=== PATIENT | female | born 1930 | race Two or more races ===

== ENCOUNTER 2016-08-26 05:40 | Inpatient (IN) | payer MEDICARE, MEDICAID ==
[~2016-08-26] VITALS: Ht 157.5 cm; Wt 54.4 kg
[2016-08-26] VITALS (14 sets, daily range): BP systolic 93–149; BP diastolic 43–65
[2016-08-26] MEDS ORDERED: celeBREX 200mg Cap **SURGERY PATIENTS ONLY ORAL ONE (06:00)
[2016-08-26] MEDS ORDERED: oxyCONTIN 20mg tab ORAL ONE (06:00)
[2016-08-26] MEDS ORDERED: Ropivacaine 5mg/ml Vial 20ml INJ ONE (06:18)
[2016-08-26] MEDS ORDERED: Morphine Sulfate PF 10 ML ONE (06:18)
[2016-08-26] MEDS ORDERED: Bupivacaine 0.5% Inj 30 ml vial INJ ONE (06:20)
[2016-08-26] MEDS ORDERED: Bacitracin 50000 Units Vial ONE (06:29)
[2016-08-26] MEDS ORDERED: LR 1000ml 1,000 ML IVLG SCH (06:35)
--- NOTE | 2016-08-26 06:40 | Anethesia Preoperative Eval ---
Anesthesia Pre-op PMH/ROS General Date of Evaluation: August 26, 2016 Time of Evaluation: 06:56 Anesthesiologist: Carmelita ASA Score: ASA 3 Mallampati Score Class I : Soft palate, uvula, fauces, pillars visible Class II: Soft palate, uvula, fauces visible Class III: Soft palate, base of uvula visible Class IV: Only hard plate visible Mallampati Classification: Class II Surgeon: Yessenia Diagnosis: L Knee Pain Surgical Procedure: L TKR Anesthesia History: none Family History: no anesthesia problems Allergies: Coded Allergies: PENICILLIN G (Verified Allergy, Mild, 07/09/09) Medications: see eMAR Past Medical History Cardiovascular: Reports: HTN HEENT: Reports: cataract (L), cataract (R) PSxH Narrative: R Knee Anesthesia Pre-op Phys. Exam Physician Exam Last Vital Signs Date Time Temp Pulse Resp B/P Pulse Ox O2 Delivery O2 Flow Rate FiO2 08/26/16 06:18 97.1 56 18 149/56 98 Room Air Constitutional: NAD Neurologic: CN 2-12 intact Cardiovascular: RRR Respiratory: CTA Gastrointestinal: S/NT/ND Airway Exam Mallampati Score: Class II MO: limited ROM: limited Teeth: missing, intact Anesthesia Pre-op A/P Risk Assessment & Plan Assessment: ASA 3 Plan: GA, Spinal, BIS, L Adductor Block Status Change Before Surgery: No Pre-Antibiotics Dru Grams Ancef IV Given Within 1 Hr of Incision: Yes Time Given: 07:41 Tomasz Mae MD August 26, 2016 06:40
--- NOTE | 2016-08-26 06:44 | Pre-Procedure Note/Attestation ---
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 I attest that, if there was a reasonable possibility of needing a blood transfusion, the patient (or the patient's legal sales representative education courses) was given the [facility] standardized written summary, pursuant to the [employer] [place] Blood Safety Act ([place] Health and Safety Code # 1645, as amended). I attest that I re-evaluated the patient just prior to the surgery and that there has been no change in the patient's H&P, except as documented below: NONE SELENA GOLDSTEIN August 26, 2016 06:44
[2016-08-26] MEDS ORDERED: Metoclopramide 10mg/2ml Inj IVP PRN (06:45)
[2016-08-26] MEDS ORDERED: Meperidine 25mg/0.5ml Inj IV PRN (06:45)
[2016-08-26] MEDS ORDERED: fentaNYL 100 mcg/2 mL IV PRN (06:45)
[2016-08-26] MEDS ORDERED: DiphenhydrAMINE 50mg/ml Inj IVP PRN (06:45)
[2016-08-26] MEDS ORDERED: Ketorolac 30mg Inj IV PRN (06:45)
[2016-08-26] MEDS ORDERED: Norco 7.5mg/325mg tab ORAL PRN ×3 (06:45→15:00)
[2016-08-26] MEDS ORDERED: Norco 5mg/325mg tab ORAL PRN ×2 (06:45→07:15)
[2016-08-26] MEDS ORDERED: Ketorolac 60mg Inj IV PRN (06:45)
[2016-08-26] MEDS ORDERED: Hydromorphone 0.5mg/0.5ml inj IVP PRN (06:45)
[2016-08-26] MEDS ORDERED: Atropine Inj 1mg/10ml Syr IV PRN (06:45)
[2016-08-26] MEDS ORDERED: Oxycodone/Acetaminophen 5-325 ORAL PRN (06:45)
[2016-08-26] MEDS ORDERED: LORazepam Inj 2mg/ml 1ml IV PRN (06:45)
[2016-08-26] MEDS ORDERED: Midazolam 2mg/2ml Inj IVP PRN (06:45)
[2016-08-26] MEDS ORDERED: NS Irrig 1000ml ONE (07:00)
[2016-08-26] MEDS ORDERED: Tranexamic Acid 1,000 MG in NS 65 ML IVPB ONE (07:00)
[2016-08-26] MEDS ORDERED: Midazolam 2mg/2ml Inj ONE (07:00)
[2016-08-26] MEDS ORDERED: Lidocaine 1% Plain 30 ml INJ ONE (07:00)
[2016-08-26] MEDS ORDERED: Lidocaine 1% MPF 10mg/ml 5ml ONE (07:00)
[2016-08-26] MEDS ORDERED: Dexamethasone 4mg/ml vial ONE (07:00)
[2016-08-26] MEDS ORDERED: ePHEDrine 50mg/ml Inj ONE (07:00)
[2016-08-26] MEDS ORDERED: LR 1000ml ONE ×2 (07:00)
[2016-08-26] MEDS ORDERED: Alfentanil 2ml Inj ONE (07:00)
[2016-08-26] MEDS ORDERED: Propofol 10mg/ml 20ml IV ONE (07:00)
[2016-08-26] MEDS ORDERED: CALCIUM CITRAT1 EAC3 PO (07:07)
[2016-08-26] MEDS ORDERED: GLUCOSAMINE &1 EAC2 PO (07:07)
[2016-08-26] MEDS ORDERED: BIOTIN 800 MCG1 EACH PO (07:07)
[2016-08-26] MEDS ORDERED: VITAMIN D1000 UNI1 ORAL (07:07)
[2016-08-26] MEDS ORDERED: NORVASC5 MG ORAL (07:07)
[2016-08-26] MEDS ORDERED: LOSARTAN POTAS100 MG ORAL (07:07)
[2016-08-26] MEDS ORDERED: ASPIR 8181 MG ORAL (07:07)
[2016-08-26] MEDS ORDERED: B COMPLEX1 EACH ORAL (07:07)
[2016-08-26] MEDS ORDERED: ALENDRONAT70 MG/75 M PO (07:07)
--- NOTE | 2016-08-26 08:33 | Immediate Post-Op Evaluation ---
Immediate Post-Op Evalulation Immediate Post-Op Evalulation Procedure: L TKR Date of Evaluation: August 26, 2016 Time of Evaluation: 09:54 IV Fluids: 1000 LR Blood Products: 0 Estimated Blood Loss: 30 Urinary Output: 300 Blood Pressure Systolic: 94 Blood Pressure Diastolic: 45 Pulse Rate: 77 Respiratory Rate: 16 O2 Sat by Pulse Oximetry: 97 Temperature (Fahrenheit): 97.9 Pain Score (1-10): 0 Nausea: No Vomiting: No Complications 0 Patient Status: awake, reacts, patent, extubated, none Hydration Status: adequate Dru grams Ancef IV Given Within 1 Hr of Incision: Yes Time Given: 07:41 Tomasz Mae MD August 26, 2016 08:33
[2016-08-26] MEDS: celeBREX 200mg Cap **SURGERY PATIENTS ONLY ORAL SCH (09:00)
[2016-08-26] MEDS ORDERED: Enoxaparin 30mg Inj SUBQ SCH (09:00)
--- NOTE | 2016-08-26 09:31 | Brief Operative Note ---
Immediate Post Operative Note Operative Note Chief Complaint: left knee pain Pre-op Diagnosis: left knee arthritis Procedure: left TKA Post-op Diagnosis: same as pre-op Findings: consistent w/pre-op dx studies Surgeon: md Yessenia Php Mysql Web Developer: lacey Varner Anesthesiologist: MD Christian Anesthesia: general Specimen: yes Complications: none Condition: stable Estimated Blood Loss: minimal Drains: none Implant(s) used?: Yes - [employer] MADDIE VARNER August 26, 2016 09:31
[2016-08-26 11:06] LABS: MEAN CORPUSCULAR HEMOGLOBIN 28.1 PG (27.0-31.0); MEAN CORPUSCULAR HGB CONC 31.7 G/DL (32.0-36.0); MEAN CORPUSCULAR VOLUME 89 FL (80-99); MEAN PLATELET VOLUME 6.7 FL (6.5-10.1); PLATELET COUNT 186 K/UL (150-450); RED BLOOD COUNT 3.79 M/UL (4.20-5.40); RED CELL DISTRIBUTION WIDTH 13.6 % (11.6-14.8); WHITE BLOOD COUNT 7.1 K/UL (4.8-10.8)
[2016-08-26 11:36] LABS: LYMPHOCYTES % (MANUAL) 8 % (20-45); NEUTROPHILS % (MANUAL) 91 % (45-75); TOTAL CELLS COUNTED 100
[2016-08-26 11:37] LABS: ANISOCYTOSIS 1+; BAND NEUTROPHILS % (MANUAL) 0 % (0-8); BASOPHILS % (MANUAL) 0 % (0-2); EOSINOPHILS % (MANUAL) 0 % (0-3); HYPOCHROMASIA 1+; PLATELET ESTIMATE ADEQUATE; PLATELET MORPHOLOGY NORMAL
--- NOTE | 2016-08-26 13:35 | Diagnostic Imaging Report ---
Indications: Status post left knee arthroplasty Technique: Portable AP and lateral views of the left knee Findings: Comparison: None Femoral, patellar, tibial prosthetic components appear well seated and in anatomic alignment. No abnormal surrounding lucency is present. Overlying soft tissues are swollen with gas bubbles. Chronic arterial mural calcifications.. IMPRESSION: Status post left knee arthroplasty. Arteriosclerosis
[2016-08-26] MEDS ORDERED: Vitamin D 1000 IU Tab ORAL SCH (15:00)
[2016-08-26] MEDS ORDERED: HYDROmorphone 1mg/ml Carpuject SUBQ PRN (15:00)
[2016-08-26] MEDS ORDERED: Milk of Magnesia 30ml Ud ORAL PRN (15:00)
[2016-08-26] MEDS: D5 1/2NS w/KCl 20mEq 1,000 ML IV SCH (15:33)
[2016-08-26] MEDS: Clindamycin 600mg 50 ML IV SCH ×2 (15:34→22:21)
[2016-08-26] MEDS ORDERED: Losartan 50mg tab ORAL SCH (17:00)
[2016-08-26] MEDS: Docusate 100mg cap ORAL SCH (18:10)
--- NOTE | 2016-08-26 18:20 | Operative Note - Dictated ---
DATE OF OPERATION: 08/26/2016 PREOPERATIVE DIAGNOSIS: Left knee end-stage arthritis. POSTOPERATIVE DIAGNOSIS: Left knee end-stage arthritis. PROCEDURE: Left total knee arthroplasty using [employer]hew system, size 4 femur, size 3 tibia, size 13 mm tibial poly insert, and size 32 mm patellar insert, all cemented. SURGEON: Michael Casas M.D. FACS TEACHER: Carie Varner PA-C. ANESTHESIOLOGIST: Tomasz Mae M.D. ANESTHESIA: Spinal anesthesia combined with adductor block for postoperative pain management. EBL: Less than 100 mL. TOURNIQUET TIME: 65 minutes. COMPLICATIONS: None. BRIEF HISTORY: The patient is a pleasant 86-year-old female who has had ongoing left knee pain and arthritis. She failed all nonoperative treatments including physical therapy, injections, and activity modification. After full discussion of the risks and benefits of the surgery and complications associated with it including infection, bleeding, neurovascular complication, possibility of DVT, PEs, and other complications that may arise, she opted for surgical treatment as described above. OPERATIVE PROCEDURE: The patient was brought to the operating table and was placed supine. All pressure points were well padded. Spinal anesthesia was induced. An adductor block was performed. The left knee was prepped and draped in the usual sterile fashion. A standard anterior approach to the knee was undertaken. After the left leg was exsanguinated, tourniquet was inflated to 275 mmHg. A medial parapatellar arthrotomy was performed and deep fibers of MCL were released. Medial and lateral meniscus was resected. The patella was everted and the knee was flexed. Entry point into the intramedullary canal was obtained. An intramedullary guide was placed into the femur. A 5-degree valgus distal cut was performed without any complications. At this point, sizing was performed and size 4 appeared to be the right size. The cutting block was placed in about 3 degrees of external rotation and anterior, posterior, and chamfer cuts were performed without any complication. Once this was performed, the trial femur was applied. There was excellent fit of the trial femur. The box cut was then performed using standard technique. Any remnants of ACL and PCL were resected. This provided excellent fit of the femur. Once this was completed, care was given to the tibia. The anterior tibia was then marked, the anterior tibial spine was marked, and the anterior tibial crest was marked. This was used as the alignment. Extramedullary alignment guide was then applied and by recreating slope and recreating anatomical axis, 9 mm was taken off the least involved side, which was the lateral side. This provided minimal bone resection on the medial side. Flexion-extension gap was checked and there was excellent flexion-extension gap with full extension and 90 degrees of flexion with an 11 mm block. Once this was completed, the knee was flexed and sizing was performed and size 3 tibial component appeared to be right size. This was placed in about 3 degrees external rotation and the short stem was punched in. At this point, trial femur, trial tibia, and an 11 mm poly insert was applied. Knee was placed through range of motion. There was excellent range of motion and stability. Care was given to the patella. The patella was everted. Using caliper, measurements were made and this was 24 mm. Standard freehand cut of the patella was performed and there was 14 mm patella remaining. Measurements were made and 32 mm patellar component appeared to be the right size. The PEG holes were drilled. At this point, a trial component of the patella was applied. At this point, the femoral component, tibial component, with a 11 mm insert, as well as patellar components were all placed through range of motion. There was full extension, full flexion, and good stability at 0, 40 degrees, 45 degrees, and 90 degrees of flexion. However, there was a slight laxity at full extension. Therefore, the tibial insert was changed to 13 mm. At this point, there was full extension, full flexion, excellent stability at 0 to 30 degrees, 45 degrees, and 90 degrees of flexion. The range of motion was excellent. The patellofemoral tracking was excellent. At this point, all trial components were removed and knee was thoroughly irrigated using copious amount of fluid. The original entry hole into the intramedullary canal of the femur was plugged in with bone. The wounds were thoroughly irrigated and cement was mixed and the tibial component, femoral component, and the patellar components were all cemented without any complication. All excess cement was removed. At this point, trialing was performed once cement was hardened and size 13 mm appeared to be the right size. Therefore at this point, an actual 13 mm poly insert was then locked in without any complication. The locking mechanism was checked and rechecked and appeared to be perfect and there was no soft tissue interposition. At this point, again range of motion, stability, and patellofemoral tracking was checked and appeared to be perfect. The tourniquet was deflated. Wounds were thoroughly irrigated. All small bleeders were stopped. The extensor mechanism was closed using #1 Vicryl suture, subcutaneous tissue was closed using 2-0 Vicryl suture, and skin was closed using 3-0 Monocryl suture. Dermabond was applied and the patient was taken to the recovery room in stable condition. Michael Casas M.D. DR: ASHLEY JOB#: [id number] CC:
--- NOTE | 2016-08-26 19:32 | History & Physical ---
History and Physical History & Physicial this is anunfortunate female with ,ulitple medical problems s/p right TKR I was consultegd by Dr diego for medical eval 86 year old female with numerous problems s/p tkr PREOP LABS SHOWED PYURIA THERE WAS NO CULTURE SHE HAS NO SYUMPTOMS UNKNOWN IF SHE GOT THE ANTIBIOTIC. pmh: HYPERTENISON COMPRESSION FRACTURE OF SPINE a knee oSTEOPOROSIS pROTEINURIA MILD HYPERGLYCEMIA SHX: NON SMOKER NO ALCOHOL ABUSE VITALS STABEL NO JVD CTA S1,S2,RRR SOFT KNEE IS ON CPM IMPRESSION S./P tkr hctREVIEWED PERIOPERATIVE ANTIBIOTIC PROPYALXIS GIVEN POST OP DVT PROPHYLAXIS PT OT HYPERTENISON ANTIHYPERTENSIVE WITH HOLD PARAMETERS CHECK A A UA ND URINE CULTURE NAD MONITOR. MARILU HOOVER August 26, 2016 19:32
[2016-08-27] VITALS (7 sets, daily range): BP systolic 82–132; BP diastolic 37–57
[2016-08-27] MEDS: D5 1/2NS w/KCl 20mEq 1,000 ML IV SCH ×3 (03:41→21:58)
[2016-08-27] MEDS: Clindamycin 600mg 50 ML IV SCH ×2 (03:45→08:49)
[2016-08-27 07:59] LABS: MEAN CORPUSCULAR HEMOGLOBIN 28.9 PG (27.0-31.0); MEAN CORPUSCULAR HGB CONC 32.2 G/DL (32.0-36.0); MEAN CORPUSCULAR VOLUME 90 FL (80-99); MEAN PLATELET VOLUME 7.4 FL (6.5-10.1); PLATELET COUNT 163 K/UL (150-450); RED BLOOD COUNT 3.25 M/UL (4.20-5.40); RED CELL DISTRIBUTION WIDTH 13.7 % (11.6-14.8)
--- NOTE | 2016-08-27 08:35 | Orthopedic Progress Note ---
Orthopedic - Progress Note Subjective Symptoms: improved, other - had symptomatic bradycardia last night- transfered to [facility]. feeling better now. has eaten. HR and BP improved Objective Vital Signs Laboratory Tests Test 08/26/16 10:55 08/27/16 07:30 White Blood Count 7.1 K/UL (4.8-10.8) 11.0 K/UL (4.8-10.8) #H Red Blood Count 3.79 M/UL (4.20-5.40) L 3.25 M/UL (4.20-5.40) L Hemoglobin 10.6 G/DL (12.0-16.0) L 9.4 G/DL (12.0-16.0) L Hematocrit 33.6 % (37.0-47.0) L 29.2 % (37.0-47.0) L Mean Corpuscular Volume 89 FL (80-99) 90 FL (80-99) Mean Corpuscular Hemoglobin 28.1 PG (27.0-31.0) 28.9 PG (27.0-31.0) Mean Corpuscular Hemoglobin Concent 31.7 G/DL (32.0-36.0) L 32.2 G/DL (32.0-36.0) Red Cell Distribution Width 13.6 % (11.6-14.8) 13.7 % (11.6-14.8) Platelet Count 186 K/UL (150-450) 163 K/UL (150-450) Mean Platelet Volume 6.7 FL (6.5-10.1) 7.4 FL (6.5-10.1) Neutrophils (%) (Auto) % (45.0-75.0) % (45.0-75.0) Lymphocytes (%) (Auto) % (20.0-45.0) % (20.0-45.0) Monocytes (%) (Auto) % (1.0-10.0) % (1.0-10.0) Eosinophils (%) (Auto) % (0.0-3.0) % (0.0-3.0) Basophils (%) (Auto) % (0.0-2.0) % (0.0-2.0) Differential Total Cells Counted 100 Neutrophils % (Manual) 91 % (45-75) H Pending Lymphocytes % (Manual) 8 % (20-45) L Pending Monocytes % (Manual) 1 % (1-10) Eosinophils % (Manual) 0 % (0-3) Basophils % (Manual) 0 % (0-2) Band Neutrophils 0 % (0-8) Platelet Estimate Adequate Pending Platelet Morphology Normal Pending Hypochromasia 1+ Anisocytosis 1+ Last 24 Hour Vital Signs Date Time Temp Pulse Resp B/P Pulse Ox O2 Delivery O2 Flow Rate FiO2 08/27/16 07:54 97.0 37 20 97/42 94 Nasal Cannula 2.0 08/27/16 04:00 30 08/27/16 04:00 96.3 40 20 89/37 100 Room Air 08/27/16 00:00 33 08/27/16 00:00 96.3 96 19 82/40 97 Nasal Cannula 08/26/16 20:10 32 14 96/45 96 Nasal Cannula 4.0 32 08/26/16 20:00 96.1 18 95/50 97 Nasal Cannula 4.0 08/26/16 17:15 Nasal Cannula 3.0 32 08/26/16 17:15 95 Nasal Cannula 3.0 32 08/26/16 17:00 106/43 08/26/16 16:00 96.8 51 16 106/43 97 Nasal Cannula 3.0 08/26/16 14:54 51 106/43 08/26/16 13:00 57 18 128/65 94 Nasal Cannula 2.0 08/26/16 12:00 96.8 49 17 117/52 98 Nasal Cannula 2.0 08/26/16 11:45 96.4 45 17 125/54 95 Nasal Cannula 2.0 08/26/16 11:00 97.4 49 15 114/56 96 Nasal Cannula 3.0 08/26/16 10:45 48 17 103/47 97 Nasal Cannula 3.0 08/26/16 10:30 49 15 100/48 96 Nasal Cannula 3.0 08/26/16 10:15 45 16 93/44 94 Nasal Cannula 3.0 08/26/16 10:00 50 15 106/49 96 Room Air 6.0 08/26/16 09:50 51 13 101/48 95 Simple Mask 6.0 08/26/16 09:45 77 16 97 08/26/16 09:43 97.9 56 16 94/45 97 Simple Mask 6.0 I&O Intake and Output 08/26/16 08/27/16 19:00 07:00 Intake Total 725 ml 675 ml Output Total 450 ml 200 ml Balance 275 ml 475 ml Intake Oral 300 ml IV Total 425 ml 675 ml Output Urine Total 450 ml 200 ml # Voids 1 Wound: clean, dry, intact Drains: none Neuro Status: normal Vascular Status: normal Additional Comments Xray reviewed: Excellent Assessment Post-op Diagnosis POD 1 Procedure Performed left TKA Plan Plan: PT, other - Dr. Vaughn has called cardiology to see- urine cx also ordered. MADDIE DEVI August 27, 2016 08:35
[2016-08-27] MEDS: celeBREX 200mg Cap **SURGERY PATIENTS ONLY ORAL SCH (08:50)
[2016-08-27] MEDS ORDERED: Vitamin D 1000 IU Tab ORAL SCH (09:00)
[2016-08-27] MEDS ORDERED: Enoxaparin 30mg Inj SUBQ SCH (09:00)
[2016-08-27] MEDS ORDERED: Losartan 50mg tab ORAL SCH (09:00)
[2016-08-27] MEDS: Docusate 100mg cap ORAL SCH ×3 (09:03→17:16)
--- NOTE | 2016-08-27 09:11 | 48 Hour Post Anesthesia Eval ---
Post Anesthesia Evaluation Procedure: L TKR Date of Evaluation: August 27, 2016 Time of Evaluation: 06:25 Blood Pressure Systolic: 89 0: 37 Pulse Rate: 48 Respiratory Rate: 20 Temperature (Fahrenheit): 97.3 O2 Sat by Pulse Oximetry: 100 Airway: patent Nausea: No Vomiting: No Pain Intensity: 1 Hydration Status: adequate Cardiopulmonary Status: at baseline Mental Status/LOC: patient returned to baseline Post-Anesthesia Complications: 0 Follow-up care needed: N/A - further care as per primary team MELODY KNOX M.D. August 27, 2016 09:11
[2016-08-27] MEDS ORDERED: Norco 7.5mg/325mg tab ORAL PRN (11:00)
[2016-08-27] MEDS ORDERED: HYDROmorphone 1mg/ml Carpuject SUBQ PRN (11:00)
[2016-08-27 11:20] LABS: BAND NEUTROPHILS % (MANUAL) 0 % (0-8); BASOPHILS % (MANUAL) 0 % (0-2); EOSINOPHILS % (MANUAL) 0 % (0-3); LYMPHOCYTES % (MANUAL) 6 % (20-45); NEUTROPHILS % (MANUAL) 89 % (45-75); PLATELET ESTIMATE ADEQUATE; PLATELET MORPHOLOGY NORMAL; TOTAL CELLS COUNTED 100
[2016-08-27 11:22] LABS: HYPOCHROMASIA 1+
[2016-08-27 12:12] LABS: APPEARANCE,URINE SLIGHTLY CLOUDY; KETONES,URINE NEGATIVE (NEGATIVE); LEUKOCYTE ESTERASE ,URINE 2+ (NEGATIVE); NITRITE,URINE NEGATIVE (NEGATIVE); PH,URINE 5 (4.5-8.0); PROTEIN,URINE 2+ (NEGATIVE); UROBILINOGEN,URINE NORMAL MG/DL (0.0-1.0)
[2016-08-27 12:35] LABS: BACTERIA,URINE FEW /HPF; CALCIUM OXALATE CRYSTALS,UR MODERATE /LPF; HYALINE CASTS, URINE 0-2 /LPF; SQUAMOUS EPITHELIAL CELL,UR FEW /LPF (NONE/OCC)
[2016-08-27] MEDS: Norco 5mg/325mg tab ORAL PRN (13:23)
[2016-08-27] MEDS ORDERED: Milk of Magnesia 30ml Ud ORAL PRN (15:00)
--- NOTE | 2016-08-27 15:46 | Cardiac Electrophysiology PN ---
Subjective Subjective [id number]. GONZALES RN and son at bedside. Fib with prince in 30s. Asymptomatic! Objective Last 24 Hour Vital Signs Date Time Temp Pulse Resp B/P Pulse Ox O2 Delivery O2 Flow Rate FiO2 08/27/16 12:00 37 08/27/16 11:49 96.9 45 18 91/40 97 Nasal Cannula 2.0 08/27/16 09:11 48 20 100 08/27/16 08:15 93 Nasal Cannula 3.0 32 08/27/16 08:15 Nasal Cannula 3.0 32 08/27/16 08:00 34 08/27/16 07:54 97.0 37 20 97/42 94 Nasal Cannula 2.0 08/27/16 04:00 30 08/27/16 04:00 96.3 40 20 89/37 100 Room Air 08/27/16 00:00 33 08/27/16 00:00 96.3 96 19 82/40 97 Nasal Cannula 08/26/16 20:10 32 14 96/45 96 Nasal Cannula 4.0 32 08/26/16 20:00 96.1 18 95/50 97 Nasal Cannula 4.0 08/26/16 17:15 Nasal Cannula 3.0 32 08/26/16 17:15 95 Nasal Cannula 3.0 32 08/26/16 17:00 106/43 08/26/16 16:00 96.8 51 16 106/43 97 Nasal Cannula 3.0 Intake and Output 08/26/16 08/27/16 19:00 07:00 Intake Total 725 ml 675 ml Output Total 450 ml 200 ml Balance 275 ml 475 ml Intake Oral 300 ml IV Total 425 ml 675 ml Output Urine Total 450 ml 200 ml # Voids 1 Laboratory Tests Test 08/27/16 07:30 08/27/16 11:30 White Blood Count 11.0 K/UL (4.8-10.8) #H Red Blood Count 3.25 M/UL (4.20-5.40) L Hemoglobin 9.4 G/DL (12.0-16.0) L Hematocrit 29.2 % (37.0-47.0) L Mean Corpuscular Volume 90 FL (80-99) Mean Corpuscular Hemoglobin 28.9 PG (27.0-31.0) Mean Corpuscular Hemoglobin Concent 32.2 G/DL (32.0-36.0) Red Cell Distribution Width 13.7 % (11.6-14.8) Platelet Count 163 K/UL (150-450) Mean Platelet Volume 7.4 FL (6.5-10.1) Neutrophils (%) (Auto) % (45.0-75.0) Lymphocytes (%) (Auto) % (20.0-45.0) Monocytes (%) (Auto) % (1.0-10.0) Eosinophils (%) (Auto) % (0.0-3.0) Basophils (%) (Auto) % (0.0-2.0) Differential Total Cells Counted 100 Neutrophils % (Manual) 89 % (45-75) H Lymphocytes % (Manual) 6 % (20-45) L Monocytes % (Manual) 5 % (1-10) Eosinophils % (Manual) 0 % (0-3) Basophils % (Manual) 0 % (0-2) Band Neutrophils 0 % (0-8) Platelet Estimate Adequate Platelet Morphology Normal Hypochromasia 1+ Urine Color Yellow Urine Appearance Slightly cloudy Urine pH 5 (4.5-8.0) Urine Specific [place] 1.025 (1.005-1.035) Urine Protein 2+ (NEGATIVE) H Urine Glucose (UA) 1+ (NEGATIVE) H Urine Ketones Negative (NEGATIVE) Urine Occult Blood Negative (NEGATIVE) Urine Nitrite Negative (NEGATIVE) Urine Bilirubin Negative (NEGATIVE) Urine Urobilinogen Normal MG/DL (0.0-1.0) Urine Leukocyte Esterase 2+ (NEGATIVE) H Urine RBC 2-4 /HPF (0 - 2) H Urine WBC 10-15 /HPF (0 - 2) H Urine Squamous Epithelial Cells Few /LPF (NONE/OCC) Urine Calcium Oxalate Crystals Moderate /LPF (NONE) Urine Bacteria Few /HPF (NONE) Urine Hyaline Casts 0-2 /LPF (NONE) H ANNIKA KEE August 27, 2016 15:46
--- NOTE | 2016-08-27 20:47 | General Progress Note ---
Assessment/Plan Status Narrative /p total knee arthroplasty preop pyuria was not treated bradycardia asymptomatic post op anemia Assessment/Plan urine culture ordered yesterday do not see it will start her on zosyn till we gfet culture result will follwo urine culture will start her on antibiotic for uti zosyn 2.25 q 6 pt ot dvt prophyalxis Subjective Date patient seen: August 27, 2016 Time patient seen: 20:45 Constitutional: Reports: no symptoms Cardiovascular: Reports: no symptoms, other - ddenies any ches tpaion Respiratory: Reports: no symptoms Gastrointestinal/Abdominal: Reports: no symptoms Allergies: Coded Allergies: PENICILLIN G (Verified Allergy, Mild, 07/09/09) Objective Last 24 Hour Vital Signs Date Time Temp Pulse Resp B/P Pulse Ox O2 Delivery O2 Flow Rate FiO2 08/27/16 20:14 98.8 46 18 132/57 97 Room Air 08/27/16 20:00 40 08/27/16 19:55 95 Nasal Cannula 3.0 32 08/27/16 19:55 Nasal Cannula 3.0 32 08/27/16 16:00 29 08/27/16 15:43 96.9 48 18 99/51 95 Nasal Cannula 2.0 08/27/16 12:00 37 08/27/16 11:49 96.9 45 18 91/40 97 Nasal Cannula 2.0 08/27/16 09:11 48 20 100 08/27/16 08:15 93 Nasal Cannula 3.0 32 08/27/16 08:15 Nasal Cannula 3.0 32 08/27/16 08:00 34 08/27/16 07:54 97.0 37 20 97/42 94 Nasal Cannula 2.0 08/27/16 04:00 30 08/27/16 04:00 96.3 40 20 89/37 100 Room Air 08/27/16 00:00 33 08/27/16 00:00 96.3 96 19 82/40 97 Nasal Cannula Intake and Output 08/26/16 08/27/16 19:00 07:00 Intake Total 725 ml 675 ml Output Total 450 ml 200 ml Balance 275 ml 475 ml Intake Oral 300 ml IV Total 425 ml 675 ml Output Urine Total 450 ml 200 ml # Voids 1 Laboratory Tests 08/27/16 07:30: White Blood Count 11.0#H, Red Blood Count 3.25L, Hemoglobin 9.4L, Hematocrit 29.2L, Mean Corpuscular Volume 90, Mean Corpuscular Hemoglobin 28.9, Mean Corpuscular Hemoglobin Concent 32.2, Red Cell Distribution Width 13.7, Platelet Count 163, Mean Platelet Volume 7.4, Neutrophils (%) (Auto) , Lymphocytes (%) ( Auto) , Monocytes (%) (Auto) , Eosinophils (%) (Auto) , Basophils (%) (Auto) , Differential Total Cells Counted 100, Neutrophils % (Manual) 89H, Lymphocytes % (Manual) 6L, Monocytes % (Manual) 5, Eosinophils % (Manual) 0, Basophils % ( Manual) 0, Band Neutrophils 0, Platelet Estimate Adequate, Platelet Morphology Normal, Hypochromasia 1+ 08/27/16 11:30: Urine Color Yellow, Urine Appearance Slightly cloudy, Urine pH 5, Urine Specific [place] 1.025, Urine Protein 2+H, Urine Glucose (UA) 1+H, Urine Ketones Negative, Urine Occult Blood Negative, Urine Nitrite Negative, Urine Bilirubin Negative, Urine Urobilinogen Normal, Urine Leukocyte Esterase 2+H, Urine RBC 2-4H, Urine WBC 10-15H, Urine Squamous Epithelial Cells Few, Urine Calcium Oxalate Crystals Moderate, Urine Bacteria Few, Urine Hyaline Casts 0-2H Height (Feet): 5 Height (Inches): 2.00 Weight (Pounds): 120 General Appearance: WD/WN Neck: non-tender Cardiovascular: other - prince int he 30s wiht occasional premature beats Respiratory/Chest: lungs clear Abdomen: soft MARILU HOOVER August 27, 2016 20:47
[2016-08-27] MEDS: Enoxaparin 30mg Inj SUBQ SCH (20:55)
--- NOTE | 2016-08-27 23:01 | Consultation ---
DATE OF CONSULTATION: CARDIOLOGY CONSULTATION: REFERRING PHYSICIAN: Kolton Vaughn M.D. REASON FOR CONSULTATION: Bradycardia. HISTORY OF PRESENT ILLNESS: The patient is an 86-year-old [place] lady with history of hypertension and bradycardia, who is followed up by the hotel room attendant in [facility]. The patient reportedly was cleared and underwent surgery with right total knee replacement by Dr. Casas. The patient was of profoundly bradycardic, heart rate in the 30s, and a Cardiology consultation was obtained postoperatively to evaluate the patient. Upon my evaluation, the patient denies any chest pain, palpitation, or shortness of breath. Denies any syncope or presyncopal symptoms. PAST MEDICAL HISTORY: 1. Hypertension. 2. History of compression fractures. 3. Osteoarthritis. 4. Osteoporosis. MEDICATIONS: At home include amlodipine 5 mg daily, aspirin, calcium, and losartan 100 mg daily. SOCIAL HISTORY: She lives at home. Does not smoke or drink alcohol. FAMILY HISTORY: Noncontributory. REVIEW OF SYSTEMS: Performed and was negative other what was mentioned in history of present illness. PHYSICAL EXAMINATION: VITAL SIGNS: Blood pressure is 91/40, pulse 37, respirations 18, and she is afebrile. HEAD AND NECK: Showed no JVD. LUNGS: Clear. CARDIOVASCULAR: Showed bradycardic S1-S2 with no gallop or murmur. ABDOMEN: Soft. EXTREMITIES: Status post knee surgery. LABORATORY DATA: Her labs show white count of 11, hemoglobin of 9.4, hematocrit 29.2, and platelet count 163,000. ASSESSMENT AND PLAN: 1. Bradycardia with episodes of junctional rhythm as well as atrial fibrillation with slow ventricular response. Surprisingly, the patient denies any syncope, presyncope, weakness, or fatigue that is likely because of the prolonged duration of her bradycardia. The patient is off of any sinus node or AV alta blocking agents. We will check a thyroid function test and watch the patient on telemetry. The patient may need a permanent pacemaker implantation. 2. Profound bradycardia, not correctable cause. We will also get an echocardiogram for further evaluation. 3. Hypertension. Continue Norvasc 5 mg b.i.d. The patient was also on losartan 100 mg daily. We will resume. 4. Status post total knee replacement. Thank very much, Dr. Vaughn, for allowing me to participate in the care of this patient. Please do not hesitate to contact for any questions regarding my evaluation. Binh Plascencia M.D. DR: Viviana JOB#: [id number] CC:
[2016-08-28 03:45] VITALS: BP 102/47
[2016-08-28 07:49] LABS: APPEARANCE,URINE CLEAR; KETONES,URINE NEGATIVE (NEGATIVE); LEUKOCYTE ESTERASE ,URINE NEGATIVE (NEGATIVE); NITRITE,URINE NEGATIVE (NEGATIVE); PH,URINE 5 (4.5-8.0); PROTEIN,URINE 2+ (NEGATIVE); UROBILINOGEN,URINE NORMAL MG/DL (0.0-1.0)
--- NOTE | 2016-08-28 07:57 | Orthopedic Progress Note ---
Orthopedic - Progress Note Subjective Symptoms: c/o post-op knee pain Additional Comments Doing ok, some pain. Pain meds available to the patient and written. Objective Vital Signs Last 24 Hour Vital Signs Date Time Temp Pulse Resp B/P Pulse Ox O2 Delivery O2 Flow Rate FiO2 08/28/16 04:00 36 08/28/16 03:45 98.3 43 18 102/47 93 Room Air 08/28/16 00:00 46 08/27/16 23:48 98.2 40 17 97/44 96 Room Air 08/27/16 20:14 98.8 46 18 132/57 97 Room Air 08/27/16 20:00 40 08/27/16 19:55 95 Nasal Cannula 3.0 32 08/27/16 19:55 Nasal Cannula 3.0 32 08/27/16 16:00 29 08/27/16 15:43 96.9 48 18 99/51 95 Nasal Cannula 2.0 08/27/16 12:00 37 08/27/16 11:49 96.9 45 18 91/40 97 Nasal Cannula 2.0 08/27/16 09:11 48 20 100 08/27/16 08:15 93 Nasal Cannula 3.0 32 08/27/16 08:15 Nasal Cannula 3.0 32 08/27/16 08:00 34 I&O Intake and Output 08/27/16 08/28/16 19:00 07:00 Intake Total 552 ml 150 ml Output Total 200 ml Balance 352 ml 150 ml Intake Oral 240 ml IV Total 312 ml 150 ml Output Urine Total 200 ml Wound: clean, dry, intact Drains: none Neuro Status: normal Assessment Post-op Diagnosis Left TKA Plan Plan: PT, pain management Additional Comments Transfer to 3E if cardiac condition stable SELENA GOLDSTEIN August 28, 2016 07:56
[2016-08-28 08:00] VITALS: BP 144/44
[2016-08-28 08:15] LABS: BASOPHILS % (AUTO) 0.7 % (0.0-2.0); EOSINOPHILS % (AUTO) 0.2 % (0.0-3.0); LYMPHOCYTES % (AUTO) 12.2 % (20.0-45.0); MEAN CORPUSCULAR VOLUME 88 FL (80-99); MEAN PLATELET VOLUME 7.5 FL (6.5-10.1); MONOCYTES % (AUTO) 9.6 % (1.0-10.0); NEUTROPHILS % (AUTO) 77.3 % (45.0-75.0); PLATELET COUNT 156 K/UL (150-450); RED BLOOD COUNT 3.19 M/UL (4.20-5.40); RED CELL DISTRIBUTION WIDTH 13.2 % (11.6-14.8); WHITE BLOOD COUNT 9.2 K/UL (4.8-10.8)
[2016-08-28 08:16] LABS: TROPONIN I < 0.30 ng/mL (<=0.30)
[2016-08-28 08:20] LABS: ANION GAP 16 (5-15); CALCIUM 8.2 mg/dL (8.6-10.2); CARBON DIOXIDE 19 mEQ/L (20-30); CHLORIDE 89 mEQ/L (98-107); HEMOLYSIS 3; POTASSIUM 5.4 mEQ/L (3.4-4.9); SODIUM 124 mEQ/L (135-145)
[2016-08-28] MEDS: Losartan 50mg tab ORAL SCH (09:00)
[2016-08-28 09:02] LABS: BACTERIA,URINE FEW /HPF; RBC,URINE 0-2 /HPF (0 - 2); SQUAMOUS EPITHELIAL CELL,UR FEW /LPF (NONE/OCC)
[2016-08-28] MEDS: oxyCONTIN 10mg tab ORAL SCH ×2 (09:31→21:28)
[2016-08-28] MEDS: Docusate 100mg cap ORAL SCH ×3 (09:43→17:35)
[2016-08-28] MEDS: Vitamin D 1000 IU Tab ORAL SCH (09:43)
[2016-08-28] MEDS: celeBREX 200mg Cap **SURGERY PATIENTS ONLY ORAL SCH (09:43)
[2016-08-28] MEDS: Enoxaparin 30mg Inj SUBQ SCH ×2 (09:44→21:29)
[2016-08-28] MEDS: Norco 5mg/325mg tab ORAL PRN (11:26)
[2016-08-28 12:00] VITALS: BP 130/57
--- NOTE | 2016-08-28 14:16 | General Progress Note ---
Assessment/Plan Assessment/Plan s/p tkr prince cardia pyuria post opa anmeia hyperkalemia plan: antibiotic for uti will zhanna pineda aait final culture results will also repeat tsh if tsh is abnormal again will start low dose symthyroid foro hypothyrodi and that will be probably the cause of her low heart rate. Subjective Date patient seen: August 28, 2016 Time patient seen: 14:15 ROS Limited/Unobtainable: Yes HEENT: Reports: no symptoms Gastrointestinal/Abdominal: Reports: no symptoms Allergies: Coded Allergies: PENICILLIN G (Verified Allergy, Mild, 07/09/09) Objective Last 24 Hour Vital Signs Date Time Temp Pulse Resp B/P Pulse Ox O2 Delivery O2 Flow Rate FiO2 08/28/16 12:00 56 18 130/57 93 Room Air 08/28/16 12:00 54 08/28/16 08:00 47 08/28/16 08:00 99.3 48 18 144/44 91 Room Air 08/28/16 04:00 36 08/28/16 03:45 98.3 43 18 102/47 93 Room Air 08/28/16 00:00 46 08/27/16 23:48 98.2 40 17 97/44 96 Room Air 08/27/16 20:14 98.8 46 18 132/57 97 Room Air 08/27/16 20:00 40 08/27/16 19:55 95 Nasal Cannula 3.0 32 08/27/16 19:55 Nasal Cannula 3.0 32 08/27/16 16:00 29 08/27/16 15:43 96.9 48 18 99/51 95 Nasal Cannula 2.0 Intake and Output 08/27/16 08/28/16 19:00 07:00 Intake Total 552 ml 150 ml Output Total 200 ml Balance 352 ml 150 ml Intake Oral 240 ml IV Total 312 ml 150 ml Output Urine Total 200 ml Laboratory Tests 08/28/16 06:00: Urine Color Pale yellow, Urine Appearance Clear, Urine pH 5, Urine Specific [place] 1.015, Urine Protein 2+H, Urine Glucose (UA) Negative, Urine Ketones Negative, Urine Occult Blood Negative, Urine Nitrite Negative, Urine Bilirubin Negative, Urine Urobilinogen Normal, Urine Leukocyte Esterase Negative, Urine RBC 0-2, Urine WBC 2-4, Urine Squamous Epithelial Cells Few, Urine Bacteria Few 08/28/16 07:25: White Blood Count 9.2, Red Blood Count 3.19L, Hemoglobin 9.2L, Hematocrit 27.9L , Mean Corpuscular Volume 88, Mean Corpuscular Hemoglobin 29.0, Mean Corpuscular Hemoglobin Concent 33.0, Red Cell Distribution Width 13.2, Platelet Count 156, Mean Platelet Volume 7.5, Neutrophils (%) (Auto) 77.3H, Lymphocytes ( %) (Auto) 12.2L, Monocytes (%) (Auto) 9.6, Eosinophils (%) (Auto) 0.2, Basophils (%) (Auto) 0.7, Sodium Level 124L, Potassium Level 5.4H, Chloride Level 89L, Carbon Dioxide Level 19L, Anion Gap 16H, Blood Urea Nitrogen 31H, Creatinine 1.0H, Estimat Glomerular Filtration Rate , Glucose Level 106, Calcium Level 8.2L, Troponin I < 0.30, Thyroid Stimulating Hormone (TSH) 5.910H , Free Thyroxine 1.70 Height (Feet): 5 Height (Inches): 2.00 Weight (Pounds): 120 General Appearance: WD/WN Neck: supple Cardiovascular: normal rate, regular rhythm, no JVD Respiratory/Chest: lungs clear Abdomen: soft MARILU HOOVER August 28, 2016 14:16
--- NOTE | 2016-08-28 15:25 | Cardiac Electrophysiology PN ---
Assessment/Plan Assessment/Plan 1. Bradycardia with episodes of junctional rhythm in 30s. The patient denies any syncope, presyncope, weakness, or fatigue that is likely because of the prolonged duration of her bradycardia. The patient is off of any sinus node or AV alta blocking agents. TSH is high but T4 normal. .Reviewed recoreds from Dr Vera's office, her patient transition specialist in [facility]. Had Bradycardia in 30s on ECG in 09/2014 but was on betablocker then that was DCed. No off any MUJICA or AVN tanya.The patient may need a permanent pacemaker implantation. Repeat TFTs. 2. Hypertension. Continue Norvasc 5 mg b.i.d. and losartan 100 mg daily. 3. Status post total knee replacement. 4. Hyponatremia. DW Dr Vera's office and daughter at bedside and RN Subjective Subjective No chest pain or SOB. HR dropped to 30s again while awake. Daughter at bedside. Objective Last 24 Hour Vital Signs Date Time Temp Pulse Resp B/P Pulse Ox O2 Delivery O2 Flow Rate FiO2 08/28/16 12:00 56 18 130/57 93 Room Air 08/28/16 12:00 54 08/28/16 08:00 47 08/28/16 08:00 99.3 48 18 144/44 91 Room Air 08/28/16 04:00 36 08/28/16 03:45 98.3 43 18 102/47 93 Room Air 08/28/16 00:00 46 08/27/16 23:48 98.2 40 17 97/44 96 Room Air 08/27/16 20:14 98.8 46 18 132/57 97 Room Air 08/27/16 20:00 40 08/27/16 19:55 95 Nasal Cannula 3.0 32 08/27/16 19:55 Nasal Cannula 3.0 32 08/27/16 16:00 29 08/27/16 15:43 96.9 48 18 99/51 95 Nasal Cannula 2.0 Intake and Output 08/27/16 08/28/16 19:00 07:00 Intake Total 552 ml 150 ml Output Total 200 ml Balance 352 ml 150 ml Intake Oral 240 ml IV Total 312 ml 150 ml Output Urine Total 200 ml Laboratory Tests Test 08/28/16 06:00 08/28/16 07:25 08/28/16 15:00 Urine Color Pale yellow Urine Appearance Clear Urine pH 5 (4.5-8.0) Urine Specific [place] 1.015 (1.005-1.035) Urine Protein 2+ (NEGATIVE) H Urine Glucose (UA) Negative (NEGATIVE) Urine Ketones Negative (NEGATIVE) Urine Occult Blood Negative (NEGATIVE) Urine Nitrite Negative (NEGATIVE) Urine Bilirubin Negative (NEGATIVE) Urine Urobilinogen Normal MG/DL (0.0-1.0) Urine Leukocyte Esterase Negative (NEGATIVE) Urine RBC 0-2 /HPF (0 - 2) Urine WBC 2-4 /HPF (0 - 2) Urine Squamous Epithelial Cells Few /LPF (NONE/OCC) Urine Bacteria Few /HPF (NONE) White Blood Count 9.2 K/UL (4.8-10.8) Red Blood Count 3.19 M/UL (4.20-5.40) L Hemoglobin 9.2 G/DL (12.0-16.0) L Hematocrit 27.9 % (37.0-47.0) L Mean Corpuscular Volume 88 FL (80-99) Mean Corpuscular Hemoglobin 29.0 PG (27.0-31.0) Mean Corpuscular Hemoglobin Concent 33.0 G/DL (32.0-36.0) Red Cell Distribution Width 13.2 % (11.6-14.8) Platelet Count 156 K/UL (150-450) Mean Platelet Volume 7.5 FL (6.5-10.1) Neutrophils (%) (Auto) 77.3 % (45.0-75.0) H Lymphocytes (%) (Auto) 12.2 % (20.0-45.0) L Monocytes (%) (Auto) 9.6 % (1.0-10.0) Eosinophils (%) (Auto) 0.2 % (0.0-3.0) Basophils (%) (Auto) 0.7 % (0.0-2.0) Sodium Level 124 mEQ/L (135-145) L Potassium Level 5.4 mEQ/L (3.4-4.9) H Chloride Level 89 mEQ/L (98-107) L Carbon Dioxide Level 19 mEQ/L (20-30) L Anion Gap 16 (5-15) H Blood Urea Nitrogen 31 mg/dL (7-23) H Creatinine 1.0 mg/dL (0.5-0.9) H Estimat Glomerular Filtration Rate mL/min (>60) Glucose Level 106 mg/dL (74-106) Calcium Level 8.2 mg/dL (8.6-10.2) L Troponin I < 0.30 ng/mL (<=0.30) Thyroid Stimulating Hormone (TSH) 5.910 uIU/mL (0.300-4.500) Pending Free Thyroxine 1.70 ng/dL (0.86-1.85) Pending Microbiology Date/Time Source Procedure Growth Status 08/26/16 06:38 Nasal Nares MRSA Culture - Final NO METHICILLIN RESISTANT STAPH AUREUS... Complete 08/27/16 11:30 Urine,Clean Catch Urine Culture - Preliminary NO GROWTH Resulted 08/26/16 20:30 Indwelling Cath Urine Culture - Preliminary NO GROWTH AFTER 24 HOURS Resulted Objective HEAD AND NECK: Showed no JVD. LUNGS: Clear. CARDIOVASCULAR: Bradycardic S1-S2 with no gallop or murmur. ABDOMEN: Soft. EXTREMITIES: Status post knee surgery. ANNIKA KEE August 28, 2016 15:25
[2016-08-28 16:00] VITALS: BP 136/65
[2016-08-28 17:06] LABS: THYROID STIMULATING HORMONE 3.59 uIU/mL (0.300-4.500)
--- NOTE | 2016-08-28 17:31 | Cardiology Report ---
APPROVED REPORT EKG Measurement Heart [id number] Sinus bradycardia Septal infarct, age undetermined Abnormal ECG
[2016-08-28 20:00] VITALS: BP 154/80
[2016-08-28] MEDS ORDERED: Depo-Medrol 40mg Inj IARTIC ONE (21:00)
[2016-08-29] VITALS: BP 154/71
[2016-08-29 04:00] VITALS: BP 145/75
[2016-08-29 07:25] LABS: BASOPHILS % (AUTO) 0.5 % (0.0-2.0); EOSINOPHILS % (AUTO) 0.3 % (0.0-3.0); LYMPHOCYTES % (AUTO) 9.1 % (20.0-45.0); MEAN CORPUSCULAR HEMOGLOBIN 28.5 PG (27.0-31.0); MEAN CORPUSCULAR HGB CONC 32.9 G/DL (32.0-36.0); MEAN CORPUSCULAR VOLUME 87 FL (80-99); MEAN PLATELET VOLUME 7.5 FL (6.5-10.1); MONOCYTES % (AUTO) 6.7 % (1.0-10.0); NEUTROPHILS % (AUTO) 83.5 % (45.0-75.0); PLATELET COUNT 180 K/UL (150-450); RED BLOOD COUNT 3.59 M/UL (4.20-5.40); RED CELL DISTRIBUTION WIDTH 13.1 % (11.6-14.8); WHITE BLOOD COUNT 8.6 K/UL (4.8-10.8)
[2016-08-29 07:53] LABS: ANION GAP 17 (5-15); CALCIUM 9.2 mg/dL (8.6-10.2); CARBON DIOXIDE 24 mEQ/L (20-30); CHLORIDE 83 mEQ/L (98-107); CREATININE 0.7 mg/dL (0.5-0.9); HEMOLYSIS 2; POTASSIUM 3.8 mEQ/L (3.4-4.9); SODIUM 124 mEQ/L (135-145)
[2016-08-29 08:00] VITALS: BP 130/75
--- NOTE | 2016-08-29 08:12 | Orthopedic Progress Note ---
Orthopedic - Progress Note Subjective Symptoms: improved - doing very well with PT. up and walking. shoulders bothering her- has been a chronic problem. improved from cardiac standpoint Objective Vital Signs Laboratory Tests Test 08/28/16 15:00 08/29/16 05:45 Thyroid Stimulating Hormone (TSH) 3.590 uIU/mL (0.300-4.500) Free Thyroxine 1.78 ng/dL (0.86-1.85) White Blood Count 8.6 K/UL (4.8-10.8) Red Blood Count 3.59 M/UL (4.20-5.40) L Hemoglobin 10.2 G/DL (12.0-16.0) L Hematocrit 31.1 % (37.0-47.0) L Mean Corpuscular Volume 87 FL (80-99) Mean Corpuscular Hemoglobin 28.5 PG (27.0-31.0) Mean Corpuscular Hemoglobin Concent 32.9 G/DL (32.0-36.0) Red Cell Distribution Width 13.1 % (11.6-14.8) Platelet Count 180 K/UL (150-450) Mean Platelet Volume 7.5 FL (6.5-10.1) Neutrophils (%) (Auto) 83.5 % (45.0-75.0) H Lymphocytes (%) (Auto) 9.1 % (20.0-45.0) L Monocytes (%) (Auto) 6.7 % (1.0-10.0) Eosinophils (%) (Auto) 0.3 % (0.0-3.0) Basophils (%) (Auto) 0.5 % (0.0-2.0) Sodium Level 124 mEQ/L (135-145) L Potassium Level 3.8 mEQ/L (3.4-4.9) Chloride Level 83 mEQ/L (98-107) L Carbon Dioxide Level 24 mEQ/L (20-30) Anion Gap 17 (5-15) H Blood Urea Nitrogen 14 mg/dL (7-23) Creatinine 0.7 mg/dL (0.5-0.9) Estimat Glomerular Filtration Rate mL/min (>60) Glucose Level 96 mg/dL (74-106) Calcium Level 9.2 mg/dL (8.6-10.2) Last 24 Hour Vital Signs Date Time Temp Pulse Resp B/P Pulse Ox O2 Delivery O2 Flow Rate FiO2 08/29/16 04:00 82 08/29/16 04:00 98.1 86 18 145/75 97 Nasal Cannula 3.0 32 08/29/16 00:00 79 08/29/16 00:00 98.1 18 154/71 97 Nasal Cannula 3.0 32 08/28/16 20:00 78 08/28/16 20:00 96.0 78 18 154/80 95 Nasal Cannula 3.0 32 08/28/16 19:32 96 Nasal Cannula 3.0 32 08/28/16 19:32 Nasal Cannula 3.0 32 08/28/16 17:36 66 151/70 08/28/16 16:00 96.0 71 18 136/65 94 Room Air 08/28/16 16:00 74 08/28/16 12:00 56 18 130/57 93 Room Air 08/28/16 12:00 54 I&O Intake and Output 08/28/16 08/29/16 19:00 07:00 # Voids 1 Wound: clean, dry, intact Drains: none Neuro Status: normal Vascular Status: normal Assessment Post-op Diagnosis POD 3 Procedure Performed left TKA Plan Plan: discharge plan - if cardiac workup can be continued as outpt with Pt's cadd drafter- stable for d/c home tomorrow with home care. , other - due to shoulder pain and flare will do bedside injection. 2cc depomedrol and 8cc marcaine injected to rt shoulder at bedside. consent obtained prior. done sterily. pt tolerated well. will inject left shoulder as outpt in 1-2 weeks MADDIE DEVI August 29, 2016 08:12
[2016-08-29] MEDS ORDERED: Depo-Medrol 40mg Inj IARTIC ONE (09:00)
[2016-08-29] MEDS: celeBREX 200mg Cap **SURGERY PATIENTS ONLY ORAL SCH (09:06)
[2016-08-29] MEDS: Vitamin D 1000 IU Tab ORAL SCH (09:06)
[2016-08-29] MEDS: Losartan 50mg tab ORAL SCH (09:06)
[2016-08-29] MEDS: Docusate 100mg cap ORAL SCH ×3 (09:07→17:06)
[2016-08-29] MEDS: oxyCONTIN 10mg tab ORAL SCH ×2 (09:08→21:29)
[2016-08-29] MEDS: Enoxaparin 30mg Inj SUBQ SCH ×2 (09:09→21:31)
--- NOTE | 2016-08-29 09:45 | Discharge Summary 2 SIG ---
DATE OF ADMISSION: 08/26/2016 HOSPITAL COURSE: The patient is a very pleasant 86-year-old female, who was admitted on 08/26/2016 for a left total knee arthroplasty. She did well with surgery and was transferred to Med/Surg floor. The first night after surgery, the patient had symptomatic bradycardia and was transferred to a telemetry bed. She was followed along by Dr. Kolton Vaughn and Dr. Binh Plascencia for monitoring of her internal medicine condition as well as her cardiac condition. With medication adjustment and cardiac care, the patient stabilized and was stable for discharge on 08/30/2016. The patient has an outpatient senior commissions analyst Dr. Vera, who will be following on with the patient on an outpatient basis. It is likely the patient may require a pacemaker and this may be initiated on an outpatient basis as the patient is reasonably stabilized with medication adjustments. From orthopedic standpoint, she did very well during her stay. She worked well with physical therapy. She had stable hemoglobin and hematocrit without the need for any blood transfusion. Her pain was well controlled. She is being discharged 08/30/2016 with home care and close outpatient followup through our office as well as with her outpatient senior commissions analyst and internal medicine physician. PHYSICAL EXAMINATION: On date of discharge, her vital signs were stable with heart rate steadily in the 70s and 80s and a reasonable blood pressure. She has been afebrile. She is alert and oriented and responsive to questions. She is neurovascularly intact. She is getting up and walking with a walker. She has no signs of distress. She does not complain of any chest pain or shortness of breath. IMPRESSION: Left total knee arthroplasty. DISCUSSION: At this time, I discussed with the patient and her son my findings. From orthopedic standpoint, she is stable for discharge 08/30/2016. I will certainly confirm with Dr. Vaughn and Dr. Plascencia, that the patient's further cardiac and internal medicine care can be continued on outpatient basis. At which point, she should follow up with the appropriate specialist. We will see her back in the office in one to two weeks for outpatient follow up regarding her orthopedic concerns. The patient also has shoulder pain for which we have been treating and one shoulder injection was performed prior to discharge. The second shoulder injection on the left side can be performed on an outpatient basis. The patient can be weightbearing as tolerated. She is to continue Lovenox for full 14 days postop and we will see her back here in the office in one to two weeks. Michael Casas M.D. I have been assigned to dictate discharge summary on this account and I was not involved in the patient's management. Hunter Salgado DR: FELECIA JOB#: [id number] CC:
--- NOTE | 2016-08-29 11:26 | Diagnostic Imaging Report ---
Indication:Elevated Bun and Creatinine. Technique: Grayscale and duplex Doppler imaging of the kidneys performed. Comparison: None Findings: There is bilateral hydronephrosis which is mild. The bladder is markedly distended with a prevoid volume of 646 cc. Postvoid volume is 206 74 cc. Small cyst noted in the right kidney. Small echogenic foci are demonstrated within the kidneys likely small nonobstructive stones. The kidneys measure between 10 and 11 cm in length. IVC is unremarkable. Impression: Hydronephrosis likely related to distended urinary bladder. Moderate postvoid residual is noted. Suspected nonobstructive stones within the kidneys. This may be confirmed by noncontrast CT. Small right renal cyst
[2016-08-29 12:00] VITALS: BP 111/67
--- NOTE | 2016-08-29 13:25 | Cardiac Electrophysiology PN ---
Assessment/Plan Assessment/Plan 1. Bradycardia with episodes of junctional rhythm in 30s. The patient denies any syncope, presyncope, weakness, or fatigue. HR has improved to 70s. The patient has been off of any sinus node or AV alta blocking agents. TSH is high but T4 normal. .Reviewed records from Dr Vera's office, her email producer in [facility]. Had Bradycardia in 30s on ECG in 09/2014 but was on beta tanya then that was DCed. DW patient and daughter regarding permanent pacemaker implantation for SSS.They would like to wait and consider as out patient.I offered them Event monitor as out patient.. 2. Hypertension. Continue Norvasc 5 mg b.i.d. and losartan 100 mg daily. 3. Status post total knee replacement. 4. Hyponatremia. DW daughter at bedside and RN Subjective Subjective No chest pain or SOB. HR improved to 70s and 80s now. Daughter at bedside. Objective Last 24 Hour Vital Signs Date Time Temp Pulse Resp B/P Pulse Ox O2 Delivery O2 Flow Rate FiO2 08/29/16 12:00 96.8 95 17 111/67 97 Room Air 08/29/16 09:07 95 133/75 08/29/16 09:06 133/75 08/29/16 08:00 99.9 95 17 130/75 95 Nasal Cannula 2.0 08/29/16 06:48 Nasal Cannula 3.0 08/29/16 06:47 97 Nasal Cannula 3.0 08/29/16 04:00 82 08/29/16 04:00 98.1 86 18 145/75 97 Nasal Cannula 3.0 32 08/29/16 00:00 79 08/29/16 00:00 98.1 18 154/71 97 Nasal Cannula 3.0 32 08/28/16 20:00 78 08/28/16 20:00 96.0 78 18 154/80 95 Nasal Cannula 3.0 32 08/28/16 19:32 96 Nasal Cannula 3.0 32 08/28/16 19:32 Nasal Cannula 3.0 32 08/28/16 17:36 66 151/70 08/28/16 16:00 96.0 71 18 136/65 94 Room Air 08/28/16 16:00 74 Intake and Output 08/28/16 08/29/16 19:00 07:00 # Voids 1 Laboratory Tests Test 08/28/16 15:00 08/29/16 05:45 Thyroid Stimulating Hormone (TSH) 3.590 uIU/mL (0.300-4.500) Free Thyroxine 1.78 ng/dL (0.86-1.85) White Blood Count 8.6 K/UL (4.8-10.8) Red Blood Count 3.59 M/UL (4.20-5.40) L Hemoglobin 10.2 G/DL (12.0-16.0) L Hematocrit 31.1 % (37.0-47.0) L Mean Corpuscular Volume 87 FL (80-99) Mean Corpuscular Hemoglobin 28.5 PG (27.0-31.0) Mean Corpuscular Hemoglobin Concent 32.9 G/DL (32.0-36.0) Red Cell Distribution Width 13.1 % (11.6-14.8) Platelet Count 180 K/UL (150-450) Mean Platelet Volume 7.5 FL (6.5-10.1) Neutrophils (%) (Auto) 83.5 % (45.0-75.0) H Lymphocytes (%) (Auto) 9.1 % (20.0-45.0) L Monocytes (%) (Auto) 6.7 % (1.0-10.0) Eosinophils (%) (Auto) 0.3 % (0.0-3.0) Basophils (%) (Auto) 0.5 % (0.0-2.0) Sodium Level 124 mEQ/L (135-145) L Potassium Level 3.8 mEQ/L (3.4-4.9) Chloride Level 83 mEQ/L (98-107) L Carbon Dioxide Level 24 mEQ/L (20-30) Anion Gap 17 (5-15) H Blood Urea Nitrogen 14 mg/dL (7-23) Creatinine 0.7 mg/dL (0.5-0.9) Estimat Glomerular Filtration Rate mL/min (>60) Glucose Level 96 mg/dL (74-106) Calcium Level 9.2 mg/dL (8.6-10.2) Microbiology Date/Time Source Procedure Growth Status 08/28/16 06:00 Urine,Clean Catch Urine Culture - Preliminary NO GROWTH Resulted 08/27/16 11:30 Urine,Clean Catch Urine Culture - Preliminary NO GROWTH AFTER 24 HOURS Resulted 08/26/16 20:30 Indwelling Cath Urine Culture - Final NO GROWTH AFTER 48 HOURS Complete Objective HEAD AND NECK: Showed no JVD. LUNGS: Clear. CARDIOVASCULAR: Nlv S1-S2 with no gallop or murmur. ABDOMEN: Soft. EXTREMITIES: Status post knee surgery. ANNIKA KEE August 29, 2016 13:25
[2016-08-29 16:00] VITALS: BP 139/84
[2016-08-29] MEDS ORDERED: NaCl 3% 500ml 250 ML IVPB ONE (20:15)
[2016-08-29 20:18] VITALS: BP 143/76
--- NOTE | 2016-08-29 20:20 | General Progress Note ---
Assessment/Plan Assessment/Plan s/p tkr prince cardia pyuria post opa anmeia hyponatremia plan: repeat tsh nirma hyponarremia had na of 132 preop will give 150- cc of 3 % saline and check bmp in am pt ot dvt prophaylxis dc palnning Subjective Date patient seen: August 29, 2016 Time patient seen: 20:18 Constitutional: Reports: no symptoms HEENT: Reports: no symptoms Cardiovascular: Reports: no symptoms Allergies: Coded Allergies: PENICILLIN G (Verified Allergy, Mild, 07/09/09) Objective Last 24 Hour Vital Signs Date Time Temp Pulse Resp B/P Pulse Ox O2 Delivery O2 Flow Rate FiO2 08/29/16 17:07 86 139/84 08/29/16 16:00 98.8 86 18 139/84 97 Room Air 08/29/16 16:00 82 08/29/16 12:00 81 08/29/16 12:00 96.8 95 17 111/67 97 Room Air 08/29/16 09:07 95 133/75 08/29/16 09:06 133/75 08/29/16 08:00 99.9 95 17 130/75 95 Nasal Cannula 2.0 08/29/16 08:00 90 08/29/16 06:48 Nasal Cannula 3.0 08/29/16 06:47 97 Nasal Cannula 3.0 08/29/16 04:00 82 08/29/16 04:00 98.1 86 18 145/75 97 Nasal Cannula 3.0 32 08/29/16 00:00 79 08/29/16 00:00 98.1 18 154/71 97 Nasal Cannula 3.0 32 Intake and Output 08/28/16 08/29/16 19:00 07:00 # Voids 1 Laboratory Tests 08/29/16 05:45: White Blood Count 8.6, Red Blood Count 3.59L, Hemoglobin 10.2L, Hematocrit 31.1L , Mean Corpuscular Volume 87, Mean Corpuscular Hemoglobin 28.5, Mean Corpuscular Hemoglobin Concent 32.9, Red Cell Distribution Width 13.1, Platelet Count 180, Mean Platelet Volume 7.5, Neutrophils (%) (Auto) 83.5H, Lymphocytes ( %) (Auto) 9.1L, Monocytes (%) (Auto) 6.7, Eosinophils (%) (Auto) 0.3, Basophils (%) (Auto) 0.5, Sodium Level 124L, Potassium Level 3.8, Chloride Level 83L, Carbon Dioxide Level 24, Anion Gap 17H, Blood Urea Nitrogen 14, Creatinine 0.7, Estimat Glomerular Filtration Rate , Glucose Level 96, Calcium Level 9.2 Height (Feet): 5 Height (Inches): 2.00 Weight (Pounds): 120 General Appearance: WD/WN Neck: non-tender Cardiovascular: normal rate, regular rhythm Respiratory/Chest: lungs clear Abdomen: soft, no organomegaly Extremities: other MARILU HOOVER August 29, 2016 20:20
[2016-08-29] MEDS ORDERED: NACL 3% IV ONE (22:00)
[2016-08-30] VITALS: BP 142/71
[2016-08-30 04:00] VITALS: BP 127/77
[2016-08-30 07:58] LABS: CALCIUM 9.2 mg/dL (8.6-10.2); CHLORIDE 92 mEQ/L (98-107); CREATININE 0.8 mg/dL (0.5-0.9); HEMOLYSIS 2; POTASSIUM 4.4 mEQ/L (3.4-4.9); SODIUM 132 mEQ/L (135-145)
[2016-08-30 08:08] VITALS: BP 171/82
[2016-08-30 08:15] VITALS: BP 126/92
[2016-08-30 08:25] LABS: ANION GAP 14 (5-15); CARBON DIOXIDE 26 mEQ/L (20-30)
[2016-08-30] MEDS: celeBREX 200mg Cap **SURGERY PATIENTS ONLY ORAL SCH (08:58)
[2016-08-30] MEDS: Losartan 50mg tab ORAL SCH (08:58)
[2016-08-30] MEDS: Vitamin D 1000 IU Tab ORAL SCH (08:59)
[2016-08-30] MEDS: Docusate 100mg cap ORAL SCH (08:59)
[2016-08-30] MEDS: oxyCONTIN 10mg tab ORAL SCH (09:01)
[2016-08-30] MEDS: Enoxaparin 30mg Inj SUBQ SCH (09:01)
--- NOTE | 2016-08-30 10:43 | General Progress Note ---
Assessment/Plan Assessment/Plan hyponatremia better s/p tkr doing welll dvvt rpophyalxis constipation movasntik 25 daily and amitizia 24 bid, Subjective Date patient seen: August 30, 2016 Time patient seen: 10:42 Constitutional: Reports: no symptoms HEENT: Reports: no symptoms Cardiovascular: Reports: no symptoms Respiratory: Reports: no symptoms Allergies: Coded Allergies: PENICILLIN G (Verified Allergy, Mild, 07/09/09) Objective Last 24 Hour Vital Signs Date Time Temp Pulse Resp B/P Pulse Ox O2 Delivery O2 Flow Rate FiO2 08/30/16 10:00 97.9 08/30/16 08:59 80 126/75 08/30/16 08:58 126/75 08/30/16 08:15 126/92 08/30/16 08:08 97.9 80 18 171/82 95 Room Air 08/30/16 06:55 95 Nasal Cannula 3.0 32 08/30/16 06:55 Nasal Cannula 3.0 32 08/30/16 04:00 97.9 74 20 127/77 97 Nasal Cannula 3.0 32 08/30/16 04:00 58 08/30/16 00:00 71 08/30/16 00:00 97.9 78 20 142/71 97 Nasal Cannula 3.0 32 08/29/16 23:20 Nasal Cannula 3.0 32 08/29/16 23:19 97 Nasal Cannula 3.0 32 08/29/16 20:18 97.9 85 20 143/76 94 Room Air 08/29/16 20:00 80 08/29/16 17:07 86 139/84 08/29/16 16:00 98.8 86 18 139/84 97 Room Air 08/29/16 16:00 82 08/29/16 12:00 81 08/29/16 12:00 96.8 95 17 111/67 97 Room Air Intake and Output 08/29/16 08/30/16 19:00 07:00 Intake Total 430 ml 150 ml Balance 430 ml 150 ml Intake Oral 430 ml IV Total 150 ml # Voids 3 Laboratory Tests 08/30/16 06:40: Sodium Level 132L, Potassium Level 4.4, Chloride Level 92L, Carbon Dioxide Level 26, Anion Gap 14, Blood Urea Nitrogen 22, Creatinine 0.8, Estimat Glomerular Filtration Rate , Glucose Level 106, Calcium Level 9.2 Height (Feet): 5 Height (Inches): 2.00 Weight (Pounds): 120 General Appearance: WD/WN Cardiovascular: normal rate, regular rhythm, no JVD Respiratory/Chest: lungs clear Abdomen: soft MARILU HOOVER August 30, 2016 10:43
--- NOTE | 2016-08-30 10:52 | General Progress Note ---
Assessment/Plan Assessment/Plan hyponatremia better s/p tkr doing welll dvvt rpophyalxis constipation movasntik 25 daily and amitizia 24 bid, Subjective Date patient seen: August 30, 2016 Time patient seen: 10:51 Constitutional: Reports: no symptoms HEENT: Reports: no symptoms Cardiovascular: Reports: no symptoms Respiratory: Reports: no symptoms Allergies: Coded Allergies: PENICILLIN G (Verified Allergy, Mild, 07/09/09) Objective Last 24 Hour Vital Signs Date Time Temp Pulse Resp B/P Pulse Ox O2 Delivery O2 Flow Rate FiO2 08/30/16 10:00 97.9 08/30/16 08:59 80 126/75 08/30/16 08:58 126/75 08/30/16 08:15 126/92 08/30/16 08:08 97.9 80 18 171/82 95 Room Air 08/30/16 06:55 95 Nasal Cannula 3.0 32 08/30/16 06:55 Nasal Cannula 3.0 32 08/30/16 04:00 97.9 74 20 127/77 97 Nasal Cannula 3.0 32 08/30/16 04:00 58 08/30/16 00:00 71 08/30/16 00:00 97.9 78 20 142/71 97 Nasal Cannula 3.0 32 08/29/16 23:20 Nasal Cannula 3.0 32 08/29/16 23:19 97 Nasal Cannula 3.0 32 08/29/16 20:18 97.9 85 20 143/76 94 Room Air 08/29/16 20:00 80 08/29/16 17:07 86 139/84 08/29/16 16:00 98.8 86 18 139/84 97 Room Air 08/29/16 16:00 82 08/29/16 12:00 81 08/29/16 12:00 96.8 95 17 111/67 97 Room Air Intake and Output 08/29/16 08/30/16 19:00 07:00 Intake Total 430 ml 150 ml Balance 430 ml 150 ml Intake Oral 430 ml IV Total 150 ml # Voids 3 Laboratory Tests 08/30/16 06:40: Sodium Level 132L, Potassium Level 4.4, Chloride Level 92L, Carbon Dioxide Level 26, Anion Gap 14, Blood Urea Nitrogen 22, Creatinine 0.8, Estimat Glomerular Filtration Rate , Glucose Level 106, Calcium Level 9.2 Height (Feet): 5 Height (Inches): 2.00 Weight (Pounds): 120 General Appearance: WD/WN Neck: supple Cardiovascular: no JVD Respiratory/Chest: lungs clear Abdomen: soft MARILU HOOVER August 30, 2016 10:52
[2016-08-30] MEDS ORDERED: OXYCONTIN10 MG ORAL (11:09)
[2016-08-30] MEDS ORDERED: LOVENOX10 MG SUBQ (11:11)
[2016-08-30 11:39] VITALS: BP 122/64
--- NOTE | 2016-08-30 13:17 | Cardiac Electrophysiology PN ---
Assessment/Plan Assessment/Plan 1. Bradycardia with episodes of junctional rhythm in 30s. The patient denies any syncope, presyncope, weakness, or fatigue. HR has improved to 70s. The patient has been off of any sinus node or AV alta blocking agents. 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 Had Bradycardia in 30s on ECG in 09/2014 but was on beta tanya then that was DCed.Bradycardia resolved in last 2 days. Will get Event monitor as out patient.. 2. Hypertension. On Norvasc 5 mg b.i.d. and losartan 100 mg daily. 3. Status post total knee replacement. 4. Hyponatremia. 5. DC home today Subjective Subjective No events overnight. No further bradycardia.. Objective Last 24 Hour Vital Signs Date Time Temp Pulse Resp B/P Pulse Ox O2 Delivery O2 Flow Rate FiO2 08/30/16 11:39 97.7 82 18 122/64 96 Room Air 08/30/16 10:00 97.9 08/30/16 08:59 80 126/75 08/30/16 08:58 126/75 08/30/16 08:15 126/92 08/30/16 08:08 97.9 80 18 171/82 95 Room Air 08/30/16 06:55 95 Nasal Cannula 3.0 32 08/30/16 06:55 Nasal Cannula 3.0 32 08/30/16 04:00 97.9 74 20 127/77 97 Nasal Cannula 3.0 32 08/30/16 04:00 58 08/30/16 00:00 71 08/30/16 00:00 97.9 78 20 142/71 97 Nasal Cannula 3.0 32 08/29/16 23:20 Nasal Cannula 3.0 32 08/29/16 23:19 97 Nasal Cannula 3.0 32 08/29/16 20:18 97.9 85 20 143/76 94 Room Air 08/29/16 20:00 80 08/29/16 17:07 86 139/84 08/29/16 16:00 98.8 86 18 139/84 97 Room Air 08/29/16 16:00 82 Intake and Output 08/29/16 08/30/16 19:00 07:00 Intake Total 430 ml 150 ml Balance 430 ml 150 ml Intake Oral 430 ml IV Total 150 ml # Voids 3 Laboratory Tests Test 08/30/16 06:40 Sodium Level 132 mEQ/L (135-145) L Potassium Level 4.4 mEQ/L (3.4-4.9) Chloride Level 92 mEQ/L (98-107) L Carbon Dioxide Level 26 mEQ/L (20-30) Anion Gap 14 (5-15) Blood Urea Nitrogen 22 mg/dL (7-23) Creatinine 0.8 mg/dL (0.5-0.9) Estimat Glomerular Filtration Rate mL/min (>60) Glucose Level 106 mg/dL (74-106) Calcium Level 9.2 mg/dL (8.6-10.2) Microbiology Date/Time Source Procedure Growth Status 08/28/16 06:00 Urine,Clean Catch Urine Culture - Final NO GROWTH AFTER 48 HOURS Complete Objective ANNIKA KEE August 30, 2016 13:17
--- NOTE | 2016-09-01 19:06 | Cardiology Report ---
APPROVED REPORT EXAM: Two-dimensional and M-mode echocardiogram with Doppler and color Doppler. INDICATION Bradycardia M-Mode DIMENSIONS IVSd1.2 (0.7-1.1cm)Left Atrium (MM)3.2 (1.6-4.0cm) LVDd4.6 (3.5-5.6cm)Aortic Root3.5 (2.0-3.7cm) PWd0.9 (0.7-1.1cm)Aortic Cusp Exc.1.6 (1.5-2.0cm) LVDs2.8 (2.5-4.0cm) PWs1.5 cm Normal left ventricular chamber size, systolic function and wall motion. Left ventricular ejection fraction estimated to be 55 %. Mild left ventricular hypertrophy. Anterior Echo-free space, may be due to pericardial fat or effusion. Mild bi-atrial enlargement by 2D. Right ventricular chamber size is within normal limits. Mild focal aortic valve sclerosis with adequate cusp excursion. Mildly thickened mitral valve leaflets with normal excursion. Mild mitral annulus and aortic root calcification. Normal pulmonic valve structure. Normal tricuspid valve structure. IVC dilated at 2.3 cm with physiologic collapse. A color flow and spectral Doppler study was performed and revealed: Mild aortic regurgitation. Mild mitral regurgitation. Mitral inflow velocities pattern implying mild left ventricular diastolic dysfunction (Grade I). Mild to moderate tricuspid regurgitation. Tricuspid systolic velocities suggests peak right ventricular systolic pressure of 80 mmHg, consistent with severe pulmonary hypertension. Mild pulmonic regurgitation present.
== END 2016-08-30 12:21 | disposition home health service (06) | DRG 470 ==
LOC: SDSOVERFLO 05:40 → 3E 11:51 → 2E 21:59
PROC: 0SRD0J9 Replacement of Left Knee Joint with Synthetic Substitute, Cemented, Open Approach (ICD-10-PCS; principal; 2016-08-26 07:00)
DX: M17.12 Unilateral primary osteoarthritis, left knee (principal); E87.1 Hypo-osmolality and hyponatremia; E87.5 Hyperkalemia; R00.1 Bradycardia, unspecified; I10 Essential (primary) hypertension; D64.89 Other specified anemias; R73.9 Hyperglycemia, unspecified; M81.0 Age-related osteoporosis without current pathological fracture; I48.91 Unspecified atrial fibrillation
CPT/HCPCS: 36415; 76775; 80048; 81001; 81003; 84439; 84443; 84484; 85007; 85025; 86850; 86900; 86901; 86920; 87081; 87086; 93005; 93306; 94003; 94150; 94760; J2250; J2405; J3490; S0077